=== PATIENT | male | born 1965 | race African-American/Black ===

== ENCOUNTER 2020-03-19 01:37 | Emergency (ER) | payer MEDICARE, MEDICAID ==
[~2020-03-19] VITALS: Ht 185.4 cm; Wt 78.0 kg
[2020-03-19] MEDS ORDERED: ALBUTEROL2.5 MG/3 M INH (01:50)
[2020-03-19 01:53] VITALS: BP 111/63
--- NOTE | 2020-03-19 01:53 | NUR ---
ED Nurse Note: Pt tamara from [facility] needing med refill for his inhaler. Pt aao x 4, ambulates with steady gait. Pt states that he does not live in the area but is visiting his brother. Awaiting ERMD at bedside.
[2020-03-19] MEDS ORDERED: PREDNISONE20 MG ORAL (01:55)
[2020-03-19] MEDS ORDERED: ALBUTEROL SULF8.5 G1 INH (01:55)
--- NOTE | 2020-03-19 01:55 | NUR ---
ED Nurse Note: ERMD at bedside
--- NOTE | 2020-03-19 01:56 | Emergency Room Report ---
History of Present Illness General Chief Complaint: Medication Refill Source: Patient Present Illness HPI This is a 54-year-old male with a history of asthma. He presents with chief plaint of shortness of breath. Symptoms is mild. He ran out of his inhaler and unable to find a [facility] as open right now for refill on his medication. Slight wheezing. Worse with exertion. Better with rest. He denies any other complaint. Said he is not homeless. Allergies: Coded Allergies: No Known Allergies (Unverified , 03/19/20) COVID-19 Screening Contact w/high risk pt: No Recent Travel to affected area: No Experienced COVID-19 symptoms?: No COVID-19 Testing performed HOOP [employer]ILER: No Patient History Past Medical History: see triage record, old chart reviewed, asthma Past Surgical History: none Pertinent Family History: none Social History: Denies: smoking Immunizations: other Reviewed Nursing Documentation: PMH: Agreed; PSxH: Agreed Nursing Documentation-PMH Hx Asthma: Yes Review of Systems Eye: Denies: eye pain, blurred vision ENT: Denies: ear pain, nose congestion, throat swelling Respiratory: Reports: cough, shortness of breath Cardiovascular: Denies: chest pain, palpitations Gastrointestinal: Denies: abdominal pain, diarrhea, nausea, vomiting Musculoskeletal: Denies: back pain, joint pain Skin: Denies: rash Neurological: Denies: headache, numbness Endocrine: Denies: increased thirst, increased urine Hematologic/Lymphatic: Denies: easy bruising All Other Systems: negative except mentioned in HPI Physical Exam Vital Signs Date Time Temp Pulse Resp B/P (MAP) Pulse Ox O2 Delivery O2 Flow Rate FiO2 03/19/20 01:43 98.2 80 20 111/63 (79) 98 Room Air Vitals normal Sp02 EP Interpretation: reviewed, normal General Appearance: well appearing, no apparent distress, alert Head: normocephalic, atraumatic Eyes: bilateral eye PERRL, bilateral eye EOMI ENT: hearing grossly normal, normal pharynx Neck: full range of motion, supple, no meningismus Respiratory: chest non-tender, normal breath sounds, wheezing - Scant wheezing with expiration Cardiovascular #1: regular rate, rhythm, no murmur Gastrointestinal: normal bowel sounds, non tender, no mass, no organomegaly, no bruit, non-distended Musculoskeletal: back normal, normal range of motion, gait/station normal Psychiatric: mood/affect normal Medical Decision Making Diagnostic Impression: Primary Impression: Asthma exacerbation Qualified Codes: J45.21 - Mild intermittent asthma with (acute) exacerbation ER Course Patient here for refill on his albuterol. He does have slight wheezing. Better after breathing treatment. Will discharge home. No evidence of ACS, PE , pneumonia, dissection to name a few. Last Vital Signs Date Time Temp Pulse Resp B/P (MAP) Pulse Ox O2 Delivery O2 Flow Rate FiO2 03/19/20 01:43 98.2 80 20 111/63 (79) 98 Room Air Status: improved Disposition: HOME, SELF-CARE Condition: Stable Scripts Prednisone* (PREDNISONE*) 20 Mg Tablet 40 MG ORAL DAILY, #8 TAB Prov: Tomy Ny MD 03/19/20 Albuterol Sulfate* (Albuterol Sulfate Hfa*) 8.5 Gm Hfa.aer.ad 2 PUFF INH Q4H, #1 INH Prov: Tomy Ny MD 03/19/20 Additional Instructions: Follow-up with your doctor in 7 days. Return if worse. Tomy Ny MD Mar 19, 2020 01:56
[2020-03-19] MEDS ORDERED: Albuterol ud Inhalation HHN ONE (02:00)
--- NOTE | 2020-03-19 02:09 | NUR ---
ED Nurse Note: RT at bedside for breathing tx. All medications administered, pt tolerated well no ss of distress noted. will continue to monitor.
[2020-03-19 02:36] VITALS: BP 111/63
--- NOTE | 2020-03-19 02:37 | NUR ---
ER DISCHARGE NOTE: Patient is cleared to be discharged home per ERMD, pt is aox4, 99% on room air, with stable vital signs. pt was given dc and prescription instructions, pt was able to verbalize understanding, pt id band removed. pt is able to ambulate with steady gait. pt took all belongings.
== END 2020-03-19 02:36 | disposition home or self-care (01) ==
LOC: EDBD 01:37 → EMR 02:05
DX: J45.21 Mild intermittent asthma with (acute) exacerbation (principal)
CPT/HCPCS: 99283; J7512